=== PATIENT | male | born 1980 | race Native Hawaiian/Other Pacific Islander ===

== ENCOUNTER 2018-12-22 19:27 | Emergency (ER) | payer OTHER ==
[~2018-12-22] VITALS: Ht 182.9 cm; Wt 131.1 kg
[2018-12-22 19:39] VITALS: BP 146/103
[2018-12-22] MEDS ORDERED: MECLIZINE 25 MG TAB PO ONE (21:25)
[2018-12-22] MEDS ORDERED: ONDANSETRON 4 MG ODT PO ONE (21:25)
[2018-12-22 21:50] VITALS: BP 133/87
== END 2018-12-22 21:50 | disposition home or self-care (01) ==
LOC: MED 19:27 → EDBD 19:27 → MED 21:50
DX: S09.90XA Unspecified injury of head, initial encounter (principal); R11.0 Nausea; R42 Dizziness and giddiness; W01.0XXA Fall on same level from slipping, tripping and stumbling without subsequent striking against object, initial encounter; Y93.89 Activity, other specified; Y92.89 Other specified places as the place of occurrence of the external cause; Y99.8 Other external cause status
CPT/HCPCS: 99283; J8597; Q0162

== ENCOUNTER 2020-04-06 21:13 | Emergency (ER) | payer OTHER ==
[~2020-04-06] VITALS: Ht 167.6 cm; Wt 129.3 kg
[2020-04-06 21:17] VITALS: BP 147/87
--- NOTE | 2020-04-06 21:17 | NUR ---
TO BED # 07 AMBULATORY
--- NOTE | 2020-04-06 21:45 | NUR ---
PATIENT 40 Y/O MALE BIB SELF FROM HOME FOR C/O DIZZYNESS X 1 DAY. PER PATIENT FELT DIZZY AND SOB WITH COUGH PER PATIENT RECIVED POSITIVE TEST FOR COVID ON WEDNESDAY. PATIENT ALERT AND ORIENTED X 4. SEE COMEPLETE ASSESSMENT FOR FURTHER DETAILS. MEDHX: PHILLY SOUZA
--- NOTE | 2020-04-06 21:48 | NUR ---
BILLIE ANTIGEN SWAB COLLECTED AND GIVEN TO LAB. LAB AT BEDSIDE COLLECTING BLOOD MELISSA.
[2020-04-06 21:51] LABS: BASOPHILS # (AUTO) 0.1 K/uL (0.00-0.22); BASOPHILS % (AUTO) 0.9 % (0.0-2.0); EOSINOPHILS # (AUTO) 0.2 K/uL (0-0.4); EOSINOPHILS % (AUTO) 2.1 % (0.0-4.0); HEMATOCRIT 43.1 % (36-52); HEMOGLOBIN 14.8 g/dL (12.0-18.0); LYMPHOCYTES # (AUTO) 2.9 K/uL (2.0-11.5); MEAN CORPUSCULAR HEMOGLOBIN 30 pg (27-31); MEAN CORPUSCULAR HGB CONC 34 g/dL (33-37); MEAN CORPUSCULAR VOLUME 86.7 fL (80-94); MONOCYTES # (AUTO) 0.7 K/uL (0.8-1.0); MONOCYTES % (AUTO) 7.4 % (1.7-9.3); NEUTROPHILS # (AUTO) 5.8 K/uL (1.8-7.7); NEUTROPHILS % (AUTO) 59.6 % (42.2-75.2); PLATELET COUNT (AUTO) 408 K/uL (140-450); RED BLOOD CELL COUNT(AUTO) 4.97 MIL/uL (4.20-6.10); RED CELL DISTRIBUTION WIDTH 13.5 % (11.6-13.7); WHITE BLOOD COUNT (AUTO) 9.7 K/uL (4.8-10.8)
--- NOTE | 2020-04-06 21:57 | NUR ---
XRAY AT BEDSIDE.
[2020-04-06 22:03] LABS: ALBUMIN 3.3 g/dL (3.4-5.0); ANION GAP 15.6 (8-16); CARBON DIOXIDE 22.4 mmol/L (21-32); CREATININE 1.3 mg/dL (0.6-1.3); TOTAL BILIRUBIN 0.4 mg/dL (0.0-1.0)
[2020-04-06] MEDS ORDERED: INSULIN REGULAR, HUMAN 100 UNIT/ML VIAL IVP ONE (22:40)
[2020-04-06] MEDS ORDERED: NACL 0.9% 1,000 ML IV ONE (22:40)
--- NOTE | 2020-04-06 23:35 | NUR ---
UA COLLECTED VIA URINAL AT BEDSIDE. UA GIVEN TO [facility].
[2020-04-06 23:57] LABS: APPEARANCE,URINE CLEAR (CLEAR); BILIRUBIN,URINE NEGATIVE (NEGATIVE); BLOOD, URINE NEGATIVE (NEGATIVE); COLOR,URINE YELLOW (YELLOW); LEUKOCYTE ESTERASE ,URINE NEGATIVE (NEGATIVE); NITRITE, URINE NEGATIVE (NEGATIVE); UGLUCOSE 3+ (NEGATIVE)
[2020-04-07 00:47] LABS: RBC,URINE 0-5 /HPF (0-5); WBC,URINE 0-5 /HPF (0-5)
[2020-04-07 01:00] VITALS: BP 137/94
--- NOTE | 2020-04-07 01:00 | NUR ---
Patient discharged with v/s stable. Written and verbal after care instructions given and explained. Patient verbalized understanding. Ambulatory with steady gait. All questions addressed prior to discharge. Advised to follow up with PMD.
--- NOTE | 2020-04-08 19:40 | NUR ---
LATE ENTRY--- NS BOLUS DISCONTINUED AT 0000
== END 2020-04-07 01:00 | disposition home or self-care (01) ==
LOC: MED 21:13
DX: R53.1 Weakness (principal); E11.9 Type 2 diabetes mellitus without complications; Z20.828 Contact with and (suspected) exposure to other viral communicable diseases
CPT/HCPCS: 36415; 71045; 80053; 81001; 82009; 85025; 87426; 96361; 96374; 99284; J1815; J7030

== ENCOUNTER 2021-01-26 18:38 | Emergency (ER) | payer OTHER ==
[~2021-01-26] VITALS: Ht 182.9 cm; Wt 83.9 kg
[2021-01-26 18:42] VITALS: BP 169/107
--- NOTE | 2021-01-26 19:01 | NUR ---
BILLIE SWAB COLLECTED AND WALKED TO LAB.
[2021-01-26] MEDS ORDERED: PROM118S5 PO (19:38)
[2021-01-26] MEDS ORDERED: ALBU0.0912 IH (19:38)
[2021-01-26] MEDS ORDERED: NAPR-54 PO (19:38)
--- NOTE | 2021-01-26 19:47 | NUR ---
PER KRISHNA. PT OK FOR D/C W CURRENT VS.
[2021-01-26 19:52] VITALS: BP 169/107
--- NOTE | 2021-01-26 19:52 | NUR ---
Patient discharged with v/s stable. Written and verbal after care instructions given and explained. Patient alert, oriented and verbalized understanding of instructions. Ambulatory with steady gait. All questions addressed prior to discharge. ID band removed. Patient advised to follow up with PMD. Rx of ALBUTEROL, NAPROXEN, PROMETHAZINE-DEXTROMETHORPHAN given. Patient educated on indication of medication including possible reaction and side effects. Opportunity to ask questions provided and answered.
== END 2021-01-26 19:52 | disposition home or self-care (01) ==
LOC: MED 18:38
DX: J06.9 Acute upper respiratory infection, unspecified (principal); Z20.822 Contact with and (suspected) exposure to COVID-19; E11.9 Type 2 diabetes mellitus without complications; I10 Essential (primary) hypertension; Z79.899 Other long term (current) drug therapy
CPT/HCPCS: 71045; 99284